=== PATIENT | male | born 1955 | race African-American/Black ===

== ENCOUNTER 2018-08-12 07:48 | Emergency (ER) | payer BC ==
[~2018-08-12] VITALS: Ht 180.3 cm; Wt 113.4 kg
[2018-08-12 07:49] VITALS: BP 171/97
[2018-08-12] MEDS ORDERED: TRAMADOL 50 MG50 MG PO (08:00)
[2018-08-12] MEDS ORDERED: AMLODIPINE BESY10 MG PO (08:00)
[2018-08-12] MEDS ORDERED: HYDROCHLOROTHIA25 M2 PO (08:00)
[2018-08-12] MEDS ORDERED: EDARBI40 MG PO (08:01)
[2018-08-12] MEDS ORDERED: VALIUM5 MG PO (08:20)
[2018-08-12] MEDS ORDERED: MOBIC15 MG PO (08:20)
[2018-08-12] MEDS ORDERED: HYDROCODONE-AP1 EAC6 PO (08:20)
== END 2018-08-12 08:55 | disposition home or self-care (01) ==
LOC: ER 07:48
DX: M46.1 Sacroiliitis, not elsewhere classified (principal); I10 Essential (primary) hypertension